=== PATIENT | male | born 1955 | race Caucasian/White ===

== ENCOUNTER 2020-05-11 22:19 | Observation (INO) | payer BC ==
[~2020-05-11] VITALS: Ht 185.4 cm; Wt 98.6 kg
--- NOTE | 2020-05-11 22:35 | PHYS DOC ---
General Adult EDM: Chief Complaint: FEVER HPI: HPI: The history was obtained from the patient. Patient is a 64-year-old male with PMH hypertension, hyperlipidemia who presents with a chief complaint of shortness of breath. Patient states he was tested for COVID 4 days ago. He states he received results morning that he was positive. He states he has had intermittent shortness of breath. He states he has had a dry cough. He notes a temperature as high as 102.0 4 days ago. He states this evening he became acutely more short of breath. He states his daughter is a respiratory therapist at home. He has been checking his home pulse oximeter noted to be approximately 80%. He does note some increase in chest pain. Denies vomiting. Denies oxygen requirement at home. No other complaints Review of Systems: Review of Systems: Constitutional: Denies fever or chills. [] Eyes: Denies change in visual acuity. [] HENT: Denies nasal congestion or sore throat. [] Respiratory: Positive for cough and shortness of breath Cardiovascular: Positive for chest pain GI: Denies abdominal pain, nausea, vomiting, bloody stools or diarrhea. [] : Denies dysuria. [] Musculoskeletal: Denies back pain or joint pain. [] Integument: Denies rash. [] Neurologic: Denies headache, focal weakness or sensory changes. [] Endocrine: Denies polyuria or polydipsia. [] Lymphatic: Denies swollen glands. [] Psychiatric: Denies depression or anxiety. [] Heart Score: Risk Factors: Risk Factors: DM, Current or recent (<one month) smoker, HTN, HLP, family history of CAD, obesity. Risk Scores: Score 0 - 3: 2.5% MACE over next 6 weeks - Discharge Home Score 4 - 6: 20.3% MACE over next 6 weeks - Admit for Clinical Observation Score 7 - 10: 72.7% MACE over next 6 weeks - Early Invasive Strategies Physical Exam: PE: Constitutional: Well developed, well nourished, no acute distress, non-toxic appearance. [] HENT: Normocephalic, atraumatic, bilateral external ears normal, oropharynx moist, no oral exudates, nose normal. [] Eyes: PERRLA, EOMI, conjunctiva normal, no discharge. [] Neck: Normal range of motion, no tenderness, supple, no stridor. [] Cardiovascular:Heart rate regular rhythm, no murmur [] Lungs & Thorax: Bilateral breath sounds clear to auscultation [] Abdomen: Bowel sounds normal, soft, no tenderness, no masses, no pulsatile masses. [] Skin: Warm, dry, no erythema, no rash. [] Back: No tenderness, no CVA tenderness. [] Extremities: No tenderness, no cyanosis, no clubbing, ROM intact, no edema. [] Neurologic: Alert and oriented X 3, normal motor function, normal sensory function, no focal deficits noted. [] Psychologic: Affect normal, judgement normal, mood normal. [] Current Patient Data: Labs: Laboratory Tests Test 05/11/20 22:45 White Blood Count 8.1 x10^3/uL Red Blood Count 4.64 x10^6/uL Hemoglobin 15.1 g/dL Hematocrit 42.2 % Mean Corpuscular Volume 91 fL Mean Corpuscular Hemoglobin 33 pg Mean Corpuscular Hemoglobin Concent 36 g/dL Red Cell Distribution Width 13.1 % Platelet Count 170 x10^3/uL Neutrophils (%) (Auto) 86 % Lymphocytes (%) (Auto) 6 % Monocytes (%) (Auto) 8 % Eosinophils (%) (Auto) 1 % Basophils (%) (Auto) 0 % Neutrophils # (Auto) 6.9 x10^3/uL Lymphocytes # (Auto) 0.4 x10^3/uL Monocytes # (Auto) 0.6 x10^3/uL Eosinophils # (Auto) 0.1 x10^3/uL Basophils # (Auto) 0.0 x10^3/uL Segmented Neutrophils % 81 % Band Neutrophils % 8 % Lymphocytes % 8 % Monocytes % 2 % Eosinophils % 1 % Platelet Estimate Adequate Sodium Level 137 mmol/L Potassium Level 3.8 mmol/L Chloride Level 101 mmol/L Carbon Dioxide Level 27 mmol/L Anion Gap 9 Blood Urea Nitrogen 15 mg/dL Creatinine 1.0 mg/dL Estimated GFR (Cockcroft-Gault) 75.2 Glucose Level 121 mg/dL Calcium Level 9.1 mg/dL Troponin I Quantitative < 0.017 ng/mL Current Medications Medications (Trade) Dose Ordered Sig/Jose Route PRN Reason Start Time Stop Time Status Last Admin Dose Admin Acetaminophen (Tylenol) 1,000 mg 1X ONCE PO 05/11/20 23:15 05/11/20 23:16 DC 05/11/20 23:25 Iohexol (Omnipaque 350 Mg/ml) 100 ml 1X ONCE IV 05/11/20 23:30 05/12/20 00:20 DC 05/11/20 23:48 Info (CONTRAST GIVEN -- Rx MONITORING) 1 each PRN DAILY PRN MC SEE COMMENTS 05/11/20 23:45 05/13/20 23:44 EKG: EKG: EKG consistent with sinus tachycardia. Ventricular rate of 103 bpm. S1Q3T3 present. No acute ST segment elevation noted. [] Radiology/Procedures: Radiology/Procedures: [][facility] [address] [place] [address] IMAGING REPORT Signed PATIENT: SHAHRZAD MERCER ACCOUNT: [id number] : 1955 LOCATION: ER AGE: 64 SEX: M EXAM STATUS: REG ER ORD. PHYSICIAN: KHOI ZAIDI DO REASON: SHORT OF AIR, CHEST PAIN PROCEDURE: CT ANGIOGRAPHY CHEST Study: CT CHEST WITH CONTRAST - PULMONARY ANGIOGRAM History: Chest pain. Shortness of air. Comparison: None. Technique: Helical CT of the chest performed after the administration of 100 cc Omnipaque 350 intravenous contrast and timed for angiographic evaluation of the pulmonary arteries per PE protocol. Coronal and sagittal 3D MIP reformations were obtained. One or more of the following individualized dose reduction techniques were utilized for this examination: 1. Automated exposure control 2. Adjustment of the mA and/or kV according to patient size 3. Use of iterative reconstruction technique. Findings: Pulmonary Arteries: No main, lobar or segmental pulmonary embolus. Heart/Systemic Vasculature: Calcific coronary artery disease. Mildly ectatic ascending aorta at 4.5 cm transverse. Mediastinum: Several mildly prominent mediastinal/hilar lymph nodes measuring right around 1 cm short axis. Calcified granulomas noted as well. Lungs: Groundglass consolidative opacities scattered throughout both lungs mainly subpleural in location. No pleural effusion or pneumothorax. The central airways are patent. Neck/Axilla/Body Wall: No acute abnormality. Upper Abdomen: Exophytic cyst off the upper pole of the left kidney. The spleen is not fully imaged but is likely mildly enlarged. Possible hepatic steatosis. Bones: Scattered degenerative changes throughout the spine as well as involving the shoulders. No acute or aggressive osseous process. Sclerotic focus within the T5 vertebral body is favored an enostosis given density. Miscellaneous: None. IMPRESSION: 1. No main, lobar or segmental pulmonary embolism. 2. Groundglass consolidative opacities scattered throughout both lungs with an appearance and distribution favored on account of an atypical/viral pneumonia. 3. Several mildly prominent mediastinal/hilar lymph nodes are favored reactive given the lung findings. 4. Additional chronic findings, as above, to include extensive calcific coronary artery disease. Electronically signed by: HOMERO CAICEDO MD (05/12/2020 12:36 AM) [id number] DICTATED and SIGNED BY: HOMERO CAICEDO MD DATE: 05/12/20 0036 Course & Med Decision Making: Course & Med Decision Making Pertinent Labs and Imaging studies reviewed. (See chart for details) Patient is a 64-year-old male who presents with chief complaint of low oxygen reading at home. He notes he was diagnosed with coronavirus earlier this morning. He states his pulse ox read approximately 80% at home. Initial labs here today are unremarkable. CT PE study reveals no acute pulmonary emboli. Patient has remained approximate 90% on room air. I am concerned given the tenuous status of his oxygenation. Furthermore his daughters respiratory therapist at home and did corroborate the low pulse ox reading. Overall the patient would feel most comfortable with observation. He will be added to the observation unit overnight. No oxygen requirement at this time. COVID-19 CRITERIA: The patient was evaluated during the global COVID-19 pandemic, and that diagnosis was suspected/considered upon their initial presentation. Their evaluation, treatment and testing was consistent with current guidelines for patients who present with complaints or symptoms that may be related to COVID-19. Dragon Disclaimer: Dragon Disclaimer: This electronic medical record was generated, in whole or in part, using a voice recognition dictation system. Departure Departure Impression: Primary Impression: COVID-19 virus detected Disposition: ADMITTED INPATIENT Condition: STABLE Justicifation of Admission Dx: Justifications for Admission: Justification of Admission Dx: Yes Comments: COVID 19 KHOI ZAIDI DO May 11, 2020 22:35
[2020-05-11 22:55] LABS: BASO % 0 % (0-3); EOS # 0.1 x10^3/uL (0.0-0.7); EOS % 1 % (0-3); HEMATOCRIT 42.2 % (39.0-53.0); HEMOGLOBIN 15.1 g/dL (13.0-17.5); LYMPH # 0.4 x10^3/uL (1.0-4.8); LYMPH % 6 % (24-48); MEAN CORPUSCULAR HEMOGLOBIN 33 pg (25-35); MEAN CORPUSCULAR HGB CONC 36 g/dL (31-37); MEAN CORPUSCULAR VOLUME 91 fL (79-100); MONO # 0.6 x10^3/uL (0.0-1.1); MONO % 8 % (0-9); NEUT # 6.9 x10^3/uL (1.8-7.7); NEUT % 86 % (31-73); PLATELET COUNT 170 x10^3/uL (140-400); RED BLOOD COUNT 4.64 x10^6/uL (4.30-5.70); RED CELL DISTRIBUTION WIDTH 13.1 % (11.5-14.5); WHITE BLOOD COUNT 8.1 x10^3/uL (4.0-11.0)
[2020-05-11 23:07] LABS: CALCIUM 9.1 mg/dL (8.5-10.1); GFR 75.2; POTASSIUM 3.8 mmol/L (3.5-5.1)
[2020-05-11] MEDS ORDERED: ACETAMINOPHEN 500 MG TABLET PO ONE (23:15)
[2020-05-11] MEDS ORDERED: IOHEXOL 350 MG/ML 100 ML VIAL. IV ONE (23:30)
[2020-05-11 23:41] LABS: % BANDS 8 % (0-9); % EOS 1 % (0-5); % LYMPHS 8 % (24-48); % MONOS 2 % (0-10); % SEGS 81 % (35-66); PLT ESTIMATE ADEQUATE (ADEQUATE)
[2020-05-11] MEDS ORDERED: CONTRAST GIVEN. MC PRN (23:45)
--- NOTE | 2020-05-12 00:39 | RAD ---
Study: CT CHEST WITH CONTRAST - PULMONARY ANGIOGRAM History: Chest pain. Shortness of air. Comparison: None. Technique: Helical CT of the chest performed after the administration of 100 cc Omnipaque 350 intravenous contrast and timed for angiographic evaluation of the pulmonary arteries per PE protocol. Coronal and sagittal 3D MIP reformations were obtained. One or more of the following individualized dose reduction techniques were utilized for this examination: 1. Automated exposure control 2. Adjustment of the mA and/or kV according to patient size 3. Use of iterative reconstruction technique. Findings: Pulmonary Arteries: No main, lobar or segmental pulmonary embolus. Heart/Systemic Vasculature: Calcific coronary artery disease. Mildly ectatic ascending aorta at 4.5 cm transverse. Mediastinum: Several mildly prominent mediastinal/hilar lymph nodes measuring right around 1 cm short axis. Calcified granulomas noted as well. Lungs: Groundglass consolidative opacities scattered throughout both lungs mainly subpleural in location. No pleural effusion or pneumothorax. The central airways are patent. Neck/Axilla/Body Wall: No acute abnormality. Upper Abdomen: Exophytic cyst off the upper pole of the left kidney. The spleen is not fully imaged but is likely mildly enlarged. Possible hepatic steatosis. Bones: Scattered degenerative changes throughout the spine as well as involving the shoulders. No acute or aggressive osseous process. Sclerotic focus within the T5 vertebral body is favored an enostosis given density. Miscellaneous: None. IMPRESSION: 1. No main, lobar or segmental pulmonary embolism. 2. Groundglass consolidative opacities scattered throughout both lungs with an appearance and distribution favored on account of an atypical/viral pneumonia. 3. Several mildly prominent mediastinal/hilar lymph nodes are favored reactive given the lung findings. 4. Additional chronic findings, as above, to include extensive calcific coronary artery disease. Electronically signed by: HOMERO CAICEDO MD (05/12/2020 12:36 AM) [id number]
--- NOTE | 2020-05-12 03:01 | EKG ---
[facility] [address] [place] [address] Test Date: 2020-05-11 Test Time: 22:38:17 Pat Name: SHAHRZAD MERCER Department: Room: Gender: M Protection Analyst: : 1955 Requested By: KHOI ZAIDI Order Number: [id number] Reading MD: Measurements Intervals [place] Rate: 103 P: 14 MT: 136 QRS: 38 QRSD: 96 T: 25 QT: 316 QTc: 416 Interpretive Statements SINUS TACHYCARDIA OTHERWISE NORMAL ECG RI6.02 No previous ECG available for comparison
[2020-05-12] MEDS ORDERED: LISI-334 PO (03:17)
[2020-05-12] MEDS ORDERED: CRESTOR5 MG PO (03:17)
[2020-05-12] MEDS ORDERED: BYSTOLIC2.5 MG PO (03:17)
[2020-05-12] MEDS ORDERED: ASPI-630 PO (03:18)
[2020-05-12 03:35] VITALS: BP 132/86
[2020-05-12 07:00] VITALS: BP 128/79
--- NOTE | 2020-05-12 08:12 | PDOC1 ---
History and Physical Date of Service: DOS: DATE: 05/12/20 TIME: 08:07 History of Present Illness: HPI: 64-year-old male with past medical history of hypertension, dyslipidemia who comes into the ED with shortness of breath. Patient states that he was tested for COVID 4 days ago and he said that he received his results next morning was positive. He had tried to avoid coming to the hospital but said that he had fevers and he had a pulse oximeter which he checked last night and it read 80%. Denies chest pain, abdominal pain, diarrhea, dysuria, or sick contacts. Past Medical/Surgical History: PMH/PSH: Hypertension, dyslipidemia Allergies: Allergies: Coded Allergies: No Known Drug Allergies (Unverified , 05/11/20) Family History: Family History: Reviewed and none reported Social History: Social History: Denies smoking, alcohol, drug abuse Current Medications: Current Medications Current Medications Acetaminophen (Tylenol) 1,000 mg 1X ONCE PO Last administered on 05/11/20at 23:25; Start 05/11/20 at 23:15; Stop 05/11/20 at 23:16; Status DC Iohexol (Omnipaque 350 Mg/ml) 100 ml 1X ONCE IV Last administered on 05/11/20at 23:48; Start 05/11/20 at 23:30; Stop 05/12/20 at 00:20; Status DC Info (CONTRAST GIVEN -- Rx MONITORING) 1 each PRN DAILY PRN MC SEE COMMENTS; Start 05/11/20 at 23:45; Stop 05/13/20 at 23:44 Active Scripts Active Reported Aspirin 81 Mg Tab.chew 1 Tab PO DAILY Bystolic (Nebivolol) 2.5 Mg Tablet 2.5 Mg PO DAILY Crestor (Rosuvastatin Calcium) 5 Mg Tablet 2 Tab PO DAILY Lisinopril 20 Mg Tablet 1 Tab PO DAILY ROS: Review of Systems Review of System REVIEW OF SYSTEMS: GENERAL: Denies weakness SKIN: No bruising, hair changes or rashes. EYES: No blurred, double or loss of vision. NOSE AND THROAT: No history of nosebleeds, hoarseness or sore throat. HEART: No history of palpitations, chest pain or shortness of breath on exertion. LUNGS: Denies cough, hemoptysis, wheezing or shortness of breath. GASTROINTESTINAL: Denies changes in appetite, nausea, vomiting, diarrhea or constipation. GENITOURINARY: No history of frequency, urgency, hesitancy or nocturia. NEUROLOGIC: Denies history of numbness, tingling, or tremor. PSYCHIATRIC: No history of panic, anxiety or depression. ENDOCRINE: No history of heat or cold intolerance, polyuria or polydipsia. EXTREMITIES: Denies joint pain, pain on walking or stiffness. Physical Exam: Vital Signs: Vital Signs Date Time Temp Pulse Resp B/P (MAP) Pulse Ox O2 Delivery O2 Flow Rate FiO2 05/12/20 03:35 97.4 105 22 132/86 (101) 94 Room Air 97.4 Physcial Exam: GEN: No apparent distress. Alert and oriented HEENT: Normal cephalic, atraumatic, external auditory canals are patent EYES: Extraocular muscles are intact, pupil are equally round and reactive to light and accommodation MUSCULOSKELETAL: Well developed , well nourished, good range of motion ENDOCRINE: No thyromegaly was palpated LYMPHATICS: No cervical chain or axillary nodes were noted HEMATOPOIETIC: No bruising NECK: Supple, no JVD, no thyromegaly was noted LUNGS: Clear to auscultation in all lung trammell without rhonchi or wheezing HEART: RRR, S!, S2 present. Peripheral pulses intact, no obvious murmurs noted ABDOMEN: Soft, nontender. Positive bowel sounds, no organomegaly, normal bowel sounds EXTREMITIES: Without clubbing, cyanosis, or edema. Pedal pulses intact. Negative Homans sign NEUROLOGIC: Normal speech and tone. A&O x 3, moves all extremities, no obvious focal deficits PSYCHIATRIC: Normal affect, normal mood. Stable SKIN: No ulcerations or rashes, good skin turgor, no jaundice VASCULAR: Good capillary refill, neurovascular bundle appears to be intact Labs: Labs: Laboratory Tests Test 05/11/20 22:45 White Blood Count 8.1 x10^3/uL (4.0-11.0) Red Blood Count 4.64 x10^6/uL (4.30-5.70) Hemoglobin 15.1 g/dL (13.0-17.5) Hematocrit 42.2 % (39.0-53.0) Mean Corpuscular Volume 91 fL (79-100) Mean Corpuscular Hemoglobin 33 pg (25-35) Mean Corpuscular Hemoglobin Concent 36 g/dL (31-37) Red Cell Distribution Width 13.1 % (11.5-14.5) Platelet Count 170 x10^3/uL (140-400) Neutrophils (%) (Auto) 86 % (31-73) Lymphocytes (%) (Auto) 6 % (24-48) Monocytes (%) (Auto) 8 % (0-9) Eosinophils (%) (Auto) 1 % (0-3) Basophils (%) (Auto) 0 % (0-3) Neutrophils # (Auto) 6.9 x10^3/uL (1.8-7.7) Lymphocytes # (Auto) 0.4 x10^3/uL (1.0-4.8) Monocytes # (Auto) 0.6 x10^3/uL (0.0-1.1) Eosinophils # (Auto) 0.1 x10^3/uL (0.0-0.7) Basophils # (Auto) 0.0 x10^3/uL (0.0-0.2) Segmented Neutrophils % 81 % (35-66) Band Neutrophils % 8 % (0-9) Lymphocytes % 8 % (24-48) Monocytes % 2 % (0-10) Eosinophils % 1 % (0-5) Platelet Estimate Adequate (ADEQUATE) Sodium Level 137 mmol/L (136-145) Potassium Level 3.8 mmol/L (3.5-5.1) Chloride Level 101 mmol/L (98-107) Carbon Dioxide Level 27 mmol/L (21-32) Anion Gap 9 (6-14) Blood Urea Nitrogen 15 mg/dL (8-26) Creatinine 1.0 mg/dL (0.7-1.3) Estimated GFR (Cockcroft-Gault) 75.2 Glucose Level 121 mg/dL (70-99) Calcium Level 9.1 mg/dL (8.5-10.1) Troponin I Quantitative < 0.017 ng/mL (0.000-0.055) Laboratory Tests Test 05/11/20 22:45 White Blood Count 8.1 x10^3/uL (4.0-11.0) Red Blood Count 4.64 x10^6/uL (4.30-5.70) Hemoglobin 15.1 g/dL (13.0-17.5) Hematocrit 42.2 % (39.0-53.0) Mean Corpuscular Volume 91 fL (79-100) Mean Corpuscular Hemoglobin 33 pg (25-35) Mean Corpuscular Hemoglobin Concent 36 g/dL (31-37) Red Cell Distribution Width 13.1 % (11.5-14.5) Platelet Count 170 x10^3/uL (140-400) Neutrophils (%) (Auto) 86 % (31-73) Lymphocytes (%) (Auto) 6 % (24-48) Monocytes (%) (Auto) 8 % (0-9) Eosinophils (%) (Auto) 1 % (0-3) Basophils (%) (Auto) 0 % (0-3) Neutrophils # (Auto) 6.9 x10^3/uL (1.8-7.7) Lymphocytes # (Auto) 0.4 x10^3/uL (1.0-4.8) Monocytes # (Auto) 0.6 x10^3/uL (0.0-1.1) Eosinophils # (Auto) 0.1 x10^3/uL (0.0-0.7) Basophils # (Auto) 0.0 x10^3/uL (0.0-0.2) Segmented Neutrophils % 81 % (35-66) Band Neutrophils % 8 % (0-9) Lymphocytes % 8 % (24-48) Monocytes % 2 % (0-10) Eosinophils % 1 % (0-5) Platelet Estimate Adequate (ADEQUATE) Sodium Level 137 mmol/L (136-145) Potassium Level 3.8 mmol/L (3.5-5.1) Chloride Level 101 mmol/L (98-107) Carbon Dioxide Level 27 mmol/L (21-32) Anion Gap 9 (6-14) Blood Urea Nitrogen 15 mg/dL (8-26) Creatinine 1.0 mg/dL (0.7-1.3) Estimated GFR (Cockcroft-Gault) 75.2 Glucose Level 121 mg/dL (70-99) Calcium Level 9.1 mg/dL (8.5-10.1) Troponin I Quantitative < 0.017 ng/mL (0.000-0.055) Images: Images Chest CTA IMPRESSION: 1. No main, lobar or segmental pulmonary embolism. 2. Groundglass consolidative opacities scattered throughout both lungs with an appearance and distribution favored on account of an atypical/viral pneumonia. 3. Several mildly prominent mediastinal/hilar lymph nodes are favored reactive given the lung findings. 4. Additional chronic findings, as above, to include extensive calcific coronary artery disease. Assessment/Plan Assessment/Plan Acute respiratory distress due to COVID-19 infection O2 supplementation as needed to maintain O2 saturation greater than 88% Start vitamin C and thiamine Start prednisone taper Patient seen in the morning and was saturating on 4 L nasal cannula and he was breathing comfortably. Patient stated that he will be able to go home with the oxygen and manage. Patient's daughter is a respiratory therapist. Patient underwent 6-minute walk test and was determined that he does need to be on 4 L nasal cannula during exertion and 3 L at rest. Patient will be discharged with prednisone taper, vitamin C, and thiamine. LATRICE ROLLINS MD May 12, 2020 08:12
[2020-05-12 08:35] VITALS: BP 128/79
[2020-05-12] MEDS ORDERED: predniSONE 20 MG TABLET PO SCH (09:00)
[2020-05-12] MEDS ORDERED: ASCORBIC ACID 500 MG TABLET PO SCH (09:00)
[2020-05-12] MEDS ORDERED: THIAMINE 100 MG TABLET. PO SCH (09:00)
[2020-05-12 11:00] VITALS: BP 136/72
--- NOTE | 2020-05-12 13:41 | NUR ---
SW following. Spoke with RN and reviewed chart. Pt COVID positive. Pt on oral medications and 2l 02. Pt from home. Pt does not have home 02. SW awaiting results of 6 min walk. Attempted to call respiratory. Pt is to discharge home today per Dr. Murcia. LESLIE following. Addendum: 05/12/20 at 1711 by ALBERTINA NELSON 6 min walk completed and pt requires 02 at discharge. SW obtained script and phoned and faxed clinicals to [facility] per approval from pt. Patient Choice of Vendor form complete. SW confirmed pt's address and phone number on the facesheet. Spoke with Yennifer from [email or web address] who authorized release of 02 tank. Pt to discharge home today with 02 tank and will call [employer] (number on the tank) upon arrival to coordinate home 02 setup. Pt given script for oral abx from Dr. Murcia. No further LESLIE needs at this time.
--- NOTE | 2020-05-12 14:26 | DISCH ---
DISCHARGE INSTRUCTIONS Condition on Discharge Condition on Discharge: Stable (Keep O2 saturations greater than 88%) Activity After Discharge Activity Instructions for Disc: Resume previous activity, Activity as tolerated Lifting Instructions after Dis: No heavy lifting Exercise Instruction after Dis: Walk 15 min, 3 x per day Driving Instructions after Dis: Do not drive today Diet after Discharge Diet after Discharge: Cardiac, Regular Contacting the DR. after DC Call your doctor for: If your condition worsens Follow-Up Follow up with: PCP within 1 week of discharge LATRICE ROLLINS MD May 12, 2020 14:26
[2020-05-12] MEDS ORDERED: ACETAMINOPHEN 325 MG TABLET. PO PRN (14:45)
[2020-05-12 15:44] VITALS: BP 139/82
[2020-05-12] MEDS ORDERED: ASCO500T4 PO (16:20)
[2020-05-12] MEDS ORDERED: THIA100T22 PO (16:20)
--- NOTE | 2020-05-12 18:15 | NUR ---
Pt discharged to home with . Meds sent to [facility] in [place]. Discharge teaching done with pt. Verbalized understanding. Oxygen set up by community mental health social worker and tank sent with pt.
[2020-05-12] MEDS ORDERED: ATORVASTATIN CALCIUM 40 MG TABLET. PO SCH (21:00)
[2020-05-12] MEDS ORDERED: METOPROLOL TART IMMED RELEASE 25 MG TABLET. PO SCH (21:00)
[2020-05-13] MEDS ORDERED: LISINOPRIL 20 MG TABLET PO SCH (09:00)
[2020-05-13] MEDS ORDERED: ASPIRIN CHEWABLE 81 MG TABLET. PO SCH (09:00)
[2020-05-14] MEDS ORDERED: predniSONE 10 MG TABLET PO SCH (09:00)
[2020-05-16] MEDS ORDERED: predniSONE 20 MG TABLET PO SCH (09:00)
[2020-05-18] MEDS ORDERED: predniSONE 10 MG TABLET PO SCH (09:00)
[2020-05-20] MEDS ORDERED: predniSONE 5 MG TABLET PO SCH (09:00)
== END 2020-05-12 18:15 | disposition home or self-care (01) ==
LOC: ER 22:19 → 6 SOUTH 05-12 01:11
PROVIDERS: ADMIT Internal Medicine; ATTEND Internal Medicine
DX: U07.1 COVID-19 (principal); R06.03 Acute respiratory distress; I10 Essential (primary) hypertension; I25.10 Atherosclerotic heart disease of native coronary artery without angina pectoris; E78.5 Hyperlipidemia, unspecified; Z79.82 Long term (current) use of aspirin
CPT/HCPCS: 36415; 71275; 80048; 84484; 85007; 85025; 93005; 94618; 99285; G0378; J7512; Q9967; G0379